=== PATIENT | male | born 1990 | race Caucasian/White ===

== ENCOUNTER 2022-07-30 11:53 | Outpatient (CLI) | payer BC, SELFPAY | END 2022-07-30 11:54 | disposition home or self-care (01) | LOC: NFLDLAB 08-09 11:54 | PROVIDERS: PCP Physician Assistant Medical; Visit Provider Obstetrics & Gynecology | DX: Z31.41 Encounter for fertility testing (principal) | CPT/HCPCS: 89322; 89398 ==

== ENCOUNTER 2022-09-17 12:46 | Outpatient (CLI) | payer BC, SELFPAY ==
[2022-09-17 21:29] LABS: Albumin* 4.9 g/dL (3.3-5.0); Chloride* 103 mmol/L (96-114); Sodium* 138 mmol/L (135-149)
[2022-09-17 21:30] LABS: Potassium* 4.4 mmol/L (3.6-5.1)
[2022-09-17 21:31] LABS: Cholesterol* 250 mg/dL (90-199)
[2022-09-17 21:32] LABS: Alkaline Phosphatase* 65 U/L (40-150); Aspartate Amino Transferase* 27 U/L (12-35); Bilirubin Total* 0.9 mg/dL (0.1-1.5); Blood Urea Nitrogen* 12 mg/dL (5-24); Carbon Dioxide* 28 mmol/L (20-32); Estimated Glomerular Filt Rate 102 ml/min; Glucose* 77 mg/dL (60-115); Total Protein* 7.7 g/dL (6.0-8.3)
[2022-09-17 21:33] LABS: Alanine Aminotransferase* 25 U/L (4-50); Calcium* 9.7 mg/dL (8.4-10.6); HDL Cholesterol* 58 mg/dL (>=40); LDL Cholesterol Calculated 173 mg/dL (<100); Triglycerides* 97 mg/dL (40-149)
[2022-09-17 21:35] LABS: Creatinine Urine 24.4 mg/dL
[2022-09-17 21:40] LABS: Microalbumin Creatinine Ratio 40 mg/g (0-30); Microalbumin Urine < 1 mg/dL
== END 2022-09-17 12:47 | disposition home or self-care (01) ==
PROVIDERS: PCP Physician Assistant Medical; Visit Provider Family Medicine
DX: I10 Essential (primary) hypertension (principal); E78.5 Hyperlipidemia, unspecified; D69.6 Thrombocytopenia, unspecified; R74.01 Elevation of levels of liver transaminase levels
CPT/HCPCS: 80053; 80061; 82043; 82570

== ENCOUNTER 2022-10-01 11:47 | Outpatient (REF) | payer BC, SELFPAY ==
[2022-10-03 00:43] LABS: Follicle Stimulating Hormone 2.5 IU/L (1.5-12.4); Luteinizing Hormone 4.5 IU/L (1.7-8.6)
[2022-10-03 00:50] LABS: Sex Hormone Binding Globulin 34 nmol/L (17-56); Testosterone, Adult Male 608 ng/dL (300-1080); Testosterone, Free Calculation 117 pg/mL (47-244); Testosterone, Percentage Free 1.9 % (1.6-2.9)
== END 2022-10-01 11:48 | disposition home or self-care (01) ==
LOC: NPINS 11:47
PROVIDERS: PCP Physician Assistant Medical; Visit Provider Urology
DX: N46.11 Organic oligospermia (principal)
CPT/HCPCS: 83001; 83002; 84270; 84402; 84403

== ENCOUNTER 2023-09-28 11:40 | Outpatient (CLI) | payer BC, SELFPAY | END 2023-09-28 11:41 | disposition home or self-care (01) | PROVIDERS: PCP Physician Assistant Medical; Visit Provider Family Medicine | DX: I10 Essential (primary) hypertension (principal); E78.5 Hyperlipidemia, unspecified | CPT/HCPCS: 80053; 80061 ==

== ENCOUNTER 2024-09-26 09:24 | Outpatient (CLI) | payer BC, SELFPAY | END 2024-09-26 09:25 | disposition home or self-care (01) | PROVIDERS: PCP Family Medicine; Visit Provider Family Medicine | DX: I10 Essential (primary) hypertension (principal); E78.5 Hyperlipidemia, unspecified | CPT/HCPCS: 80053; 80061; 82043; 82570 ==